=== PATIENT | female | born 1945 | race Caucasian/White ===

== ENCOUNTER → 2016-04-05 | Outpatient (CLI) | payer MEDICAID, MEDICARE ==
[~2016-04-05] MED LIST: ALEV220C2 PO; CHEL50TA PO; COUM2.5T11 PO; FLON1SPR; FOLI400T PO; TRAM50TA2 PO; VITA100T96 PO; VITA200015 PO; VITA500C24 PO; VITA500T53 PO
[2016-04-05 08:54] LABS: CALCIUM LEVEL 9.3 MG/DL (8.8-10.2); CREATININE FOR GFR 1.07 MG/DL (0.55-1.02); GLOMERULAR FILTRATION RATE 53.8 (>39); POTASSIUM SERUM 4.4 MEQ/L (3.5-5.1)
== END ==
LOC: M LAB 07:57
PROVIDERS: ATTEND Nurse Practitioner Family
DX: I10 Essential (primary) hypertension (principal)

== ENCOUNTER → 2016-10-14 | Outpatient (CLI) | payer MEDICARE ==
[~2016-10-14] MED LIST changes: -COUM2.5T11 PO; +COUM2.5T17 PO
[2016-10-14 09:03] LABS: BASO # 0.1 K/mm3 (0.0-0.2); BASO % 1.3 % (0.0-1.0); EOS # 0.2 K/mm3 (0.0-0.50); EOS % 3.6 % (0.0-3.0); LARGE UNSTAINED CELL # 0.1 K/mm3 (0.0-0.4); LARGE UNSTAINED CELL % 2.2 % (0.0-4.0); LYMPH # 1.3 K/mm3 (1.5-4.5); LYMPH % 18.4 % (24.0-44.0); MEAN CORPUSCULAR HGB CONC 33.3 g/dl (32.0-36.5); MEAN CORPUSCULAR VOLUME 99.3 fl (80.0-96.0); MONO # 0.5 K/mm3 (0.0-0.8); MONO % 7.2 % (0.0-5.0); NEUTROPHILS # 4.3 K/mm3 (1.8-7.7); NEUTROPHILS % 67.3 % (36.0-66.0); PLATELET COUNT, AUTOMATED 235 k/mm3 (150-450); RED CELL DISTRIBUTION WIDTH 12.8 % (11.5-14.5); WHITE BLOOD COUNT 6.3 K/mm3 (4.0-10.0)
[2016-10-14 09:43] LABS: ALBUMIN 3.5 GM/DL (3.2-5.2); ALBUMIN/GLOBULIN RATIO 0.97 (1.00-1.93); ALKALINE PHOSPHATASE 110 U/L (45-117); ALT/SGPT 54 U/L (12-78); ANION GAP 9 MEQ/L (8-16); AST/SGOT 30 U/L (15-37); BILIRUBIN,TOTAL 0.3 MG/DL (0.2-1.0); BLOOD UREA NITROGEN 23 MG/DL (7-18); CARBON DIOXIDE LEVEL 26 MEQ/L (21-32); CHLORIDE LEVEL 107 MEQ/L (98-107); CHOLESTEROL LEVEL 197 MG/DL (<200); CREATININE FOR GFR 0.93 MG/DL (0.55-1.02); GLOMERULAR FILTRATION RATE > 60.0 (>39); GLUCOSE, FASTING 183 MG/DL (83-110); SODIUM LEVEL 142 MEQ/L (136-145); TOTAL PROTEIN 7.1 GM/DL (6.4-8.2); TRIGLYCERIDES LEVEL 329 MG/DL (<150)
[2016-10-14 09:51] LABS: POTASSIUM SERUM 5.6 MEQ/L (3.5-5.1)
== END ==
LOC: M LAB 08:27
PROVIDERS: ATTEND Nurse Practitioner Family
DX: R73.01 Impaired fasting glucose (principal); I10 Essential (primary) hypertension; E78.5 Hyperlipidemia, unspecified

== ENCOUNTER → 2016-11-26 | Outpatient (CLI) | payer MEDICARE ==
[2016-11-26 09:31] LABS: FREE T4 1.09 NG/DL (0.76-1.46)
== END ==
LOC: M LAB 08:25
PROVIDERS: ATTEND Nurse Practitioner Family
DX: E04.1 Nontoxic single thyroid nodule (principal)

== ENCOUNTER → 2017-02-13 | Outpatient (CLI) | payer MEDICARE | LOC: M LAB 15:23 | DX: R35.0 Frequency of micturition (principal) | CPT/HCPCS: 36415 ==

== ENCOUNTER → 2017-04-02 | Outpatient (CLI) | payer MEDICARE ==
[2017-04-02 08:09] LABS: BASO # 0.1 10^3/uL (0.0-0.2); BASO % 0.7 % (0.0-1.0); EOS # 0.3 10^3/uL (0.0-0.50); EOS % 2.3 % (0.0-3.0); HEMATOCRIT 39.8 % (36.0-47.0); IMMATURE GRANULOCYTE % 0.5 % (0-3.0); LYMPH # 1.2 10^3/uL (1.5-4.5); LYMPH % 11.6 % (24.0-44.0); MEAN CORPUSCULAR HEMOGLOBIN 32.3 pg (27.0-33.0); MEAN CORPUSCULAR HGB CONC 32.7 g/dl (32.0-36.5); MONO # 0.9 10^3/uL (0.0-0.8); MONO % 8.3 % (0.0-5.0); NEUTROPHILS # 8.2 10^3/uL (1.8-7.7); NEUTROPHILS % 76.6 % (36.0-66.0); PLATELET COUNT, AUTOMATED 240 10^3/uL (150-450); RED BLOOD COUNT 4.02 10^6/uL (4.00-5.40); RED CELL DISTRIBUTION WIDTH 12.4 % (11.5-14.5); WHITE BLOOD COUNT 10.7 10^3/uL (4.0-10.0)
[2017-04-02 08:43] LABS: ALBUMIN 3.6 GM/DL (3.2-5.2); ALBUMIN/GLOBULIN RATIO 0.97 (1.00-1.93); ALKALINE PHOSPHATASE 97 U/L (45-117); ALT/SGPT 33 U/L (12-78); ANION GAP 9 MEQ/L (8-16); AST/SGOT 25 U/L (7-37); BILIRUBIN,TOTAL 0.4 MG/DL (0.2-1.0); BLOOD UREA NITROGEN 21 MG/DL (7-18); CALCIUM LEVEL 8.7 MG/DL (8.8-10.2); CARBON DIOXIDE LEVEL 26 MEQ/L (21-32); CHLORIDE LEVEL 106 MEQ/L (98-107); CHOLESTEROL LEVEL 196 MG/DL (<200); CREATININE FOR GFR 0.96 MG/DL (0.55-1.30); FREE T3 2.9 PG/ML (2.2-4.0); FREE T4 1.26 NG/DL (0.76-1.46); GLOMERULAR FILTRATION RATE > 60.0 (>39); GLUCOSE, FASTING 148 MG/DL (70-100); HDL CHOLESTEROL 46 MG/DL (>40); LDL CHOLESTEROL 110.8 MG/DL (<100); NON-HDL-C 150 MG/DL; POTASSIUM SERUM 4.8 MEQ/L (3.5-5.1); SODIUM LEVEL 141 MEQ/L (136-145); TOTAL PROTEIN 7.3 GM/DL (6.4-8.2); TRIGLYCERIDES LEVEL 196 MG/DL (<150)
== END ==
LOC: M LAB 07:39
DX: I10 Essential (primary) hypertension (principal); E04.1 Nontoxic single thyroid nodule; E78.5 Hyperlipidemia, unspecified
CPT/HCPCS: 84443

== ENCOUNTER → 2017-10-06 | Outpatient (CLI) | payer MEDICARE, MEDICAID ==
[2017-10-06 08:45] LABS: BASO # 0.1 10^3/uL (0.0-0.2); BASO % 0.7 % (0.0-1.0); EOS # 0.3 10^3/uL (0.0-0.50); EOS % 2.6 % (0.0-3.0); HEMATOCRIT 38.8 % (36.0-47.0); HEMOGLOBIN 12.6 g/dl (12.0-15.5); IMMATURE GRANULOCYTE % 0.5 % (0-3.0); LYMPH # 1.5 10^3/uL (1.5-4.5); LYMPH % 15.3 % (24.0-44.0); MEAN CORPUSCULAR HEMOGLOBIN 32.1 pg (27.0-33.0); MEAN CORPUSCULAR HGB CONC 32.5 g/dl (32.0-36.5); MONO % 10.1 % (0.0-5.0); NEUTROPHILS # 6.9 10^3/uL (1.8-7.7); NEUTROPHILS % 70.8 % (36.0-66.0); PLATELET COUNT, AUTOMATED 251 10^3/uL (150-450); RED BLOOD COUNT 3.92 10^6/uL (4.00-5.40); RED CELL DISTRIBUTION WIDTH 13.1 % (11.5-14.5); WHITE BLOOD COUNT 9.8 10^3/uL (4.0-10.0)
[2017-10-06 08:58] LABS: ESTIMATED AVERAGE GLUCOSE 154 MG/DL (60-110)
[2017-10-06 09:15] LABS: ALBUMIN 3.5 GM/DL (3.2-5.2); ALBUMIN/GLOBULIN RATIO 0.95 (1.00-1.93); ALKALINE PHOSPHATASE 95 U/L (45-117); ALT/SGPT 55 U/L (12-78); ANION GAP 8 MEQ/L (8-16); AST/SGOT 27 U/L (7-37); BILIRUBIN,TOTAL 0.4 MG/DL (0.2-1.0); BLOOD UREA NITROGEN 16 MG/DL (7-18); CALCIUM LEVEL 8.9 MG/DL (8.8-10.2); CARBON DIOXIDE LEVEL 28 MEQ/L (21-32); CHLORIDE LEVEL 107 MEQ/L (98-107); CHOLESTEROL LEVEL 177 MG/DL (<200); CHOLESTEROL RISK RATIO 4.657 (<5); CREATININE FOR GFR 0.91 MG/DL (0.55-1.30); FREE T3 2.9 PG/ML (2.2-4.0); FREE T4 1.09 NG/DL (0.76-1.46); GLOMERULAR FILTRATION RATE > 60.0 (>39); GLUCOSE, FASTING 128 MG/DL (70-100); HDL CHOLESTEROL 38 MG/DL (>40); LDL CHOLESTEROL 73.4 MG/DL (<100); NON-HDL-C 139 MG/DL; SODIUM LEVEL 143 MEQ/L (136-145); TOTAL PROTEIN 7.2 GM/DL (6.4-8.2); TRIGLYCERIDES LEVEL 328 MG/DL (<150)
[2017-10-06 09:17] LABS: POTASSIUM SERUM 5.9 MEQ/L (3.5-5.1)
== END ==
LOC: M LAB 07:57
DX: E11.9 Type 2 diabetes mellitus without complications (principal); I10 Essential (primary) hypertension; E78.5 Hyperlipidemia, unspecified; E04.1 Nontoxic single thyroid nodule
CPT/HCPCS: 84443

== ENCOUNTER → 2017-10-28 | Outpatient (CLI) | payer MEDICARE, MEDICAID ==
[2017-10-28 10:23] LABS: ANION GAP 12 MEQ/L (8-16); BLOOD UREA NITROGEN 22 MG/DL (7-18); CALCIUM LEVEL 8.9 MG/DL (8.8-10.2); CARBON DIOXIDE LEVEL 18 MEQ/L (21-32); CHLORIDE LEVEL 108 MEQ/L (98-107); CREATININE FOR GFR 0.87 MG/DL (0.55-1.30); GLOMERULAR FILTRATION RATE > 60.0 (>39); GLUCOSE, FASTING 167 MG/DL (70-100); POTASSIUM SERUM 4.5 MEQ/L (3.5-5.1); SODIUM LEVEL 138 MEQ/L (136-145)
== END ==
LOC: M LAB 08:51
DX: I10 Essential (primary) hypertension (principal)
CPT/HCPCS: 80048

== ENCOUNTER → 2018-10-14 | Outpatient (REF) | payer MEDICARE, MEDICAID ==
[~2018-10-14] MED LIST changes: +VITA100T77 PO; -VITA100T96 PO; +VITA500T17 PO; -VITA500T53 PO
[2018-10-14 15:39] LABS: APPEARANCE, URINE HAZY (CLEAR); BACTERIA, URINE AUTO 1+ (NEGATIVE); BILIRUBIN, URINE AUTO NEGATIVE (NEGATIVE); BLOOD, URINE BLOOD NEGATIVE (NEGATIVE); COLOR, URINE YELLOW (YELLOW); GLUCOSE, URINE (UA) AUTO NEGATIVE (NEGATIVE); KETONE, URINE AUTO NEGATIVE (NEGATIVE); LEUKOCYTE ESTERASE, URINE AUTO 3+ (NEGATIVE); MUCUS, URINE SMALL (NEGATIVE); NITRITE, URINE AUTO POSITIVE (NEGATIVE); PROTEIN, URINE AUTO NEGATIVE (NEGATIVE); RBC, URINE AUTO 3 /HPF (0-3); SPECIFIC GRAVITY URINE AUTO 1.024 (1.002-1.035); SQUAMOUS EPITHELIAL CELL UR AU 2 /HPF (0-6); UROBILINOGEN, URINE AUTO 0.2 mg/dL (0.0-2.0); WBC, URINE AUTO 10 /HPF (0-3)
== END ==
LOC: M SFHCPLAZ 15:24
PROVIDERS: ATTEND Nurse Practitioner Family
DX: N39.0 Urinary tract infection, site not specified (principal)

== ENCOUNTER → 2019-01-13 | Outpatient (CLI) | payer MEDICARE, MEDICAID ==
[2019-01-13 08:33] LABS: BASO # 0.1 10^3/uL (0.0-0.2); BASO % 1.4 % (0.0-1.0); EOS # 0.3 10^3/uL (0.0-0.5); EOS % 3.2 % (0.0-3.0); HEMATOCRIT 40.7 % (36.0-47.0); LYMPH # 1.6 10^3/uL (1.5-5.0); LYMPH % 17.3 % (24.0-44.0); MEAN CORPUSCULAR HEMOGLOBIN 32.1 pg (27.0-33.0); MEAN CORPUSCULAR HGB CONC 31.9 g/dl (32.0-36.5); MEAN CORPUSCULAR VOLUME 100.5 fl (80.0-96.0); MONO # 0.9 10^3/uL (0.0-0.8); MONO % 9.7 % (0.0-5.0); NEUTROPHILS # 6.4 10^3/uL (1.5-8.5); NEUTROPHILS % 67.9 % (36.0-66.0); PLATELET COUNT, AUTOMATED 256 10^3/uL (150-450); RED BLOOD COUNT 4.05 10^6/uL (4.00-5.40); WHITE BLOOD COUNT 9.4 10^3/uL (4.0-10.0)
[2019-01-13 09:04] LABS: ALBUMIN 3.6 GM/DL (3.2-5.2); ALT/SGPT 58 U/L (12-78); BILIRUBIN,TOTAL 0.3 MG/DL (0.2-1.0); BLOOD UREA NITROGEN 19 MG/DL (7-18); CALCIUM LEVEL 9.2 MG/DL (8.8-10.2); CARBON DIOXIDE LEVEL 23 MEQ/L (21-32); CHLORIDE LEVEL 108 MEQ/L (98-107); CHOLESTEROL LEVEL 186 MG/DL (<200); CHOLESTEROL RISK RATIO 4.325 (<5); GLOMERULAR FILTRATION RATE > 60.0 (>39); GLUCOSE, FASTING 130 MG/DL (70-100); HDL CHOLESTEROL 43 MG/DL (>40); LDL CHOLESTEROL 98 MG/DL (<100); MAGNESIUM LEVEL 1.9 MG/DL (1.8-2.4); NON-HDL-C 143 MG/DL; POTASSIUM SERUM 4.8 MEQ/L (3.5-5.1); SODIUM LEVEL 140 MEQ/L (136-145); TOTAL PROTEIN 7.3 GM/DL (6.4-8.2); TRIGLYCERIDES LEVEL 226 MG/DL (<150)
== END ==
LOC: M LAB 07:59
PROVIDERS: ATTEND Nurse Practitioner Family
DX: E11.9 Type 2 diabetes mellitus without complications (principal); E78.5 Hyperlipidemia, unspecified; I10 Essential (primary) hypertension

== ENCOUNTER → 2019-01-20 | Outpatient (REF) | payer MEDICARE, MEDICAID ==
[2019-01-20 11:28] LABS: APPEARANCE, URINE HAZY (CLEAR); BACTERIA, URINE AUTO 1+ (NEGATIVE); BILIRUBIN, URINE AUTO NEGATIVE (NEGATIVE); BLOOD, URINE BLOOD 1+ (NEGATIVE); COLOR, URINE YELLOW (YELLOW); GLUCOSE, URINE (UA) AUTO NEGATIVE (NEGATIVE); KETONE, URINE AUTO NEGATIVE (NEGATIVE); LEUKOCYTE ESTERASE, URINE AUTO 2+ (NEGATIVE); MUCUS, URINE SMALL (NEGATIVE); NITRITE, URINE AUTO NEGATIVE (NEGATIVE); PROTEIN, URINE AUTO NEGATIVE (NEGATIVE); RBC, URINE AUTO 3 /HPF (0-3); SPECIFIC GRAVITY URINE AUTO 1.018 (1.002-1.035); SQUAMOUS EPITHELIAL CELL UR AU 1 /HPF (0-6); UROBILINOGEN, URINE AUTO 0.2 mg/dL (0.0-2.0); WBC, URINE AUTO 21 /HPF (0-3)
== END ==
LOC: M SFHCPLAZ 10:41
PROVIDERS: ATTEND Nurse Practitioner Family
DX: N39.0 Urinary tract infection, site not specified (principal); E11.9 Type 2 diabetes mellitus without complications

== ENCOUNTER → 2019-07-22 | Outpatient (REF) | payer MEDICARE, MEDICAID | LOC: M SFHCPLAZ 13:18 | PROVIDERS: ATTEND Physician Assistant | DX: N39.0 Urinary tract infection, site not specified (principal) ==

== ENCOUNTER → 2020-02-16 | Outpatient (REF) | payer MEDICARE, MEDICAID ==
[2020-02-16 11:10] LABS: BASO # 0.1 10^3/uL (0.0-0.2); BASO % 1.1 % (0.0-1.0); EOS # 0.3 10^3/uL (0.0-0.5); EOS % 2.8 % (0.0-3.0); HEMATOCRIT 42.2 % (36.0-47.0); HEMOGLOBIN 13.2 g/dl (12.0-15.5); LYMPH # 1.6 10^3/uL (1.5-5.0); LYMPH % 17.2 % (24.0-44.0); MEAN CORPUSCULAR HEMOGLOBIN 30.8 pg (27.0-33.0); MEAN CORPUSCULAR HGB CONC 31.3 g/dl (32.0-36.5); MEAN CORPUSCULAR VOLUME 98.6 fl (80.0-96.0); MONO # 0.9 10^3/uL (0.0-0.8); NEUTROPHILS # 6.2 10^3/uL (1.5-8.5); NEUTROPHILS % 68.6 % (36.0-66.0); PLATELET COUNT, AUTOMATED 262 10^3/uL (150-450); RED BLOOD COUNT 4.28 10^6/uL (4.00-5.40)
[2020-02-16 11:50] LABS: ALBUMIN 3.9 GM/DL (3.2-5.2); ALT/SGPT 47 U/L (12-78); BILIRUBIN,TOTAL 0.3 MG/DL (0.2-1.0); BLOOD UREA NITROGEN 22 MG/DL (7-18); CALCIUM LEVEL 9.7 MG/DL (8.8-10.2); CARBON DIOXIDE LEVEL 28 MEQ/L (21-32); CHLORIDE LEVEL 106 MEQ/L (98-107); CHOLESTEROL LEVEL 213 MG/DL (<200); CHOLESTEROL RISK RATIO 5.071 (<5); CREATININE FOR GFR 0.78 MG/DL (0.55-1.30); FREE T4 1.07 NG/DL (0.76-1.46); GLOMERULAR FILTRATION RATE > 60.0 (>39); GLUCOSE, FASTING 93 MG/DL (70-100); HDL CHOLESTEROL 42 MG/DL (>40); LDL CHOLESTEROL 125 MG/DL (<100); NON-HDL-C 171 MG/DL; SODIUM LEVEL 138 MEQ/L (136-145); TOTAL PROTEIN 7.9 GM/DL (6.4-8.2); TRIGLYCERIDES LEVEL 228 MG/DL (<150)
[2020-02-16 12:26] LABS: HEMOGLOBIN A1c 5.7 %
== END ==
LOC: M SFHCPLAZ 09:51
PROVIDERS: ATTEND Nurse Practitioner Family
DX: E78.5 Hyperlipidemia, unspecified (principal); E11.9 Type 2 diabetes mellitus without complications; I10 Essential (primary) hypertension

== ENCOUNTER → 2020-04-13 | Outpatient (REF) | payer MEDICARE, MEDICAID ==
[2020-04-13 12:09] LABS: APPEARANCE, URINE HAZY (CLEAR); BACTERIA, URINE AUTO 1+ (NEGATIVE); BILIRUBIN, URINE AUTO NEGATIVE (NEGATIVE); BLOOD, URINE BLOOD 1+ (NEGATIVE); COLOR, URINE YELLOW (YELLOW); GLUCOSE, URINE (UA) AUTO NEGATIVE (NEGATIVE); KETONE, URINE AUTO NEGATIVE (NEGATIVE); LEUKOCYTE ESTERASE, URINE AUTO 3+ (NEGATIVE); MUCUS, URINE SMALL (NEGATIVE); NITRITE, URINE AUTO POSITIVE (NEGATIVE); PROTEIN, URINE AUTO NEGATIVE (NEGATIVE); RBC, URINE AUTO 5 /HPF (0-3); SPECIFIC GRAVITY URINE AUTO 1.023 (1.002-1.035); SQUAMOUS EPITHELIAL CELL UR AU 1 /HPF (0-6); UROBILINOGEN, URINE AUTO 0.2 mg/dL (0.0-2.0); WBC, URINE AUTO 37 /HPF (0-3)
== END ==
LOC: M LAB REF 11:06
PROVIDERS: ATTEND Nurse Practitioner Family
DX: N39.0 Urinary tract infection, site not specified (principal)

== ENCOUNTER → 2020-08-16 | Outpatient (CLI) | payer MEDICARE, MEDICAID ==
[~2020-08-16] MED LIST changes: -FOLI400T PO; +FOLI400T13 PO
[2020-08-16 14:21] LABS: BLOOD UREA NITROGEN 17 MG/DL (7-18); CALCIUM LEVEL 9.5 MG/DL (8.8-10.2); CARBON DIOXIDE LEVEL 24 MEQ/L (21-32); CHLORIDE LEVEL 107 MEQ/L (98-107); CREATININE FOR GFR 0.71 MG/DL (0.55-1.30); GLOMERULAR FILTRATION RATE > 60.0 (>39); GLUCOSE, FASTING 124 MG/DL (70-100); POTASSIUM SERUM 5.1 MEQ/L (3.5-5.1); SODIUM LEVEL 139 MEQ/L (136-145)
[2020-08-16 14:22] LABS: ALBUMIN 3.9 GM/DL (3.2-5.2); ALT/SGPT 49 U/L (12-78); BILIRUBIN,TOTAL 0.3 MG/DL (0.2-1.0); CHOLESTEROL LEVEL 219 MG/DL (<200); CHOLESTEROL RISK RATIO 4.866 (<5); FREE T4 1.03 NG/DL (0.76-1.46); HDL CHOLESTEROL 45 MG/DL (>40); LDL CHOLESTEROL 125 MG/DL (<100); NON-HDL-C 174 MG/DL; TOTAL PROTEIN 7.7 GM/DL (6.4-8.2); TRIGLYCERIDES LEVEL 247 MG/DL (<150)
[2020-08-16 14:24] LABS: HEMOGLOBIN A1c 6.2 %
== END ==
LOC: M PLALAB 10:13
PROVIDERS: ATTEND Nurse Practitioner Family
DX: E78.5 Hyperlipidemia, unspecified (principal); I10 Essential (primary) hypertension; E11.9 Type 2 diabetes mellitus without complications

== ENCOUNTER → 2021-03-02 | Outpatient (CLI) | payer MEDICARE, MEDICAID ==
[2021-03-02 17:43] LABS: BASO # 0.1 10^3/uL (0.0-0.2); BASO % 0.9 % (0.0-1.0); EOS # 0.3 10^3/uL (0.0-0.5); EOS % 2.5 % (0.0-3.0); HEMATOCRIT 42.6 % (36.0-47.0); HEMOGLOBIN 13.5 g/dl (12.0-15.5); MEAN CORPUSCULAR HEMOGLOBIN 31.5 pg (27.0-33.0); MEAN CORPUSCULAR HGB CONC 31.7 g/dl (32.0-36.5); MEAN CORPUSCULAR VOLUME 99.5 fl (80.0-96.0); MONO # 1.1 10^3/uL (0.0-0.8); NEUTROPHILS # 8.1 10^3/uL (1.5-8.5); NEUTROPHILS % 70.1 % (36.0-66.0); PLATELET COUNT, AUTOMATED 284 10^3/uL (150-450); RED BLOOD COUNT 4.28 10^6/uL (4.00-5.40); WHITE BLOOD COUNT 11.6 10^3/uL (4.0-10.0)
[2021-03-02 18:13] LABS: ALBUMIN 3.7 GM/DL (3.2-5.2); ALT/SGPT 44 U/L (12-78); BILIRUBIN,TOTAL 0.2 MG/DL (0.2-1.0); BLOOD UREA NITROGEN 21 MG/DL (7-18); CALCIUM LEVEL 9.6 MG/DL (8.8-10.2); CARBON DIOXIDE LEVEL 26 MEQ/L (21-32); CHLORIDE LEVEL 106 MEQ/L (98-107); CHOLESTEROL LEVEL 187 MG/DL (<200); CHOLESTEROL RISK RATIO 4.794 (<5); CREATININE FOR GFR 0.63 MG/DL (0.55-1.30); GLOMERULAR FILTRATION RATE > 60.0 (>39); GLUCOSE, FASTING 86 MG/DL (70-100); HDL CHOLESTEROL 39 MG/DL (>40); LDL CHOLESTEROL 105 MG/DL (<100); NON-HDL-C 148 MG/DL; POTASSIUM SERUM 5.2 MEQ/L (3.5-5.1); SODIUM LEVEL 138 MEQ/L (136-145); TOTAL PROTEIN 7.8 GM/DL (6.4-8.2); TRIGLYCERIDES LEVEL 217 MG/DL (<150)
[2021-03-02 19:58] LABS: HEMOGLOBIN A1c 6.1 %
== END ==
LOC: M PLALAB 15:47
PROVIDERS: ATTEND Nurse Practitioner Family
DX: E78.5 Hyperlipidemia, unspecified (principal); I10 Essential (primary) hypertension; E11.9 Type 2 diabetes mellitus without complications
CPT/HCPCS: 36415; 80053; 80061; 83036; 85025; G0463

== ENCOUNTER 2021-11-27 11:33 | Emergency (ER) | payer MEDICARE, MEDICAID, OTHER ==
[~2021-11-27] VITALS: Ht 152.4 cm; Wt 102.3 kg
[2021-11-27] MEDS ORDERED: LISI40TA4 PO (12:09)
[2021-11-27] MEDS ORDERED: KETAMINE HCL 200 MG/20 ML VIAL IV ONE (12:50)
[2021-11-27] MEDS ORDERED: propofoL 200 MG/20 ML VIAL IV.PROC PRN (12:50)
[2021-11-27] MEDS: NS 1,000 ML IV SCH ×2 (13:14→14:57)
[2021-11-27 16:04] VITALS: BP 166/95
== END 2021-11-27 16:12 | disposition home or self-care (01) ==
LOC: M ED 11:33 → EDBD 11:33 → M ED 16:12
DX: S43.004A Unspecified dislocation of right shoulder joint, initial encounter (principal); S63.275A Dislocation of unspecified interphalangeal joint of left ring finger, initial encounter; W05.0XXA Fall from non-moving wheelchair, initial encounter; Y92.512 Supermarket, store or market as the place of occurrence of the external cause; M19.042 Primary osteoarthritis, left hand; M25.742 Osteophyte, left hand; E11.9 Type 2 diabetes mellitus without complications; I10 Essential (primary) hypertension; E78.5 Hyperlipidemia, unspecified; Z88.2 Allergy status to sulfonamides

== ENCOUNTER 2021-12-17 05:33 | Emergency (ER) | payer MEDICARE, MEDICAID ==
[~2021-12-17 05:33] MED LIST changes: +LISI40TA4 PO
[2021-12-17] MEDS ORDERED: ONDANSETRON 4MG 2ML VIAL IV ONE (06:10)
[2021-12-17] MEDS ORDERED: MORPHINE 2 MG/ML 1ML VIAL IV ONE (06:10)
[2021-12-17] MEDS ORDERED: niCARdipine IV 40 MG in IV 1 EA IV SCH (06:10)
[2021-12-17 06:25] LABS: BASO # 0.1 10^3/uL (0.0-0.2); BASO % 0.6 % (0.0-1.0); EOS # 0.1 10^3/uL (0.0-0.5); EOS % 0.6 % (0.0-3.0); HEMATOCRIT 40.1 % (36.0-47.0); LYMPH # 0.8 10^3/uL (1.5-5.0); LYMPH % 4.5 % (24.0-44.0); MEAN CORPUSCULAR HEMOGLOBIN 32.1 pg (27.0-33.0); MEAN CORPUSCULAR HGB CONC 32.4 g/dl (32.0-36.5); MONO # 1.1 10^3/uL (0.0-0.8); MONO % 6.3 % (2.0-8.0); NEUTROPHILS # 15.6 10^3/uL (1.5-8.5); NEUTROPHILS % 87.3 % (36.0-66.0); PLATELET COUNT, AUTOMATED 288 10^3/uL (150-450); RED BLOOD COUNT 4.05 10^6/uL (4.00-5.40); WHITE BLOOD COUNT 17.8 10^3/uL (4.0-10.0)
[2021-12-17 06:52] LABS: CK-MB VALUE MASS 5.8 NG/ML (<3.6); MB/CK RELATIVE INDEX 2.36 (< OR =4)
[2021-12-17 07:01] LABS: INR 0.91; PROTHROMBIN TIME 12.5 SECONDS (12.5-14.5)
[2021-12-17 07:05] LABS: RSV AMPLIFICATION NEGATIVE (NEGATIVE)
[2021-12-17 07:06] LABS: BLOOD UREA NITROGEN 22 MG/DL (7-18); CALCIUM LEVEL 9.1 MG/DL (8.8-10.2); CARBON DIOXIDE LEVEL 20 MEQ/L (21-32); CHLORIDE LEVEL 107 MEQ/L (98-107); CREATININE FOR GFR 0.76 MG/DL (0.55-1.30); FREE T4 1.15 NG/DL (0.76-1.46); GLOMERULAR FILTRATION RATE > 60.0 (>39); GLUCOSE, FASTING 236 MG/DL (70-100); MAGNESIUM LEVEL 1.9 MG/DL (1.8-2.4); SODIUM LEVEL 136 MEQ/L (136-145)
[2021-12-17] MEDS ORDERED: BOOSTRIX/ADACEL VACCINE (DIPHTH/PERTUSS/ACELL/TETANUS) 0.5ML SYR IM ONE (07:35)
[2021-12-17 07:54] VITALS: BP 127/59
== END 2021-12-17 07:54 | disposition short-term general hospital (02) ==
LOC: M ED 05:33 → EDBD 05:33 → M ED 07:54
DX: S06.5X0A Traumatic subdural hemorrhage without loss of consciousness, initial encounter (principal); S02.2XXA Fracture of nasal bones, initial encounter for closed fracture; W01.0XXA Fall on same level from slipping, tripping and stumbling without subsequent striking against object, initial encounter; Y92.002 Bathroom of unspecified non-institutional (private) residence as the place of occurrence of the external cause; I10 Essential (primary) hypertension; E11.9 Type 2 diabetes mellitus without complications; R00.0 Tachycardia, unspecified; Z88.2 Allergy status to sulfonamides; Z79.899 Other long term (current) drug therapy
CPT/HCPCS: 70450; 70486; 72125; 80048; 82550; 82553; 83735; 84439; 84443; 84484; 85025; 85610; 87631; 90471; 90715; 93005; 93041; 94760; 96365; 96375; 99285; J2270; J2405